=== PATIENT | female | born 1980 | race Caucasian/White ===

== ENCOUNTER 2020-10-15 09:48 | Emergency (ER) | payer OTHER ==
[~2020-10-15 09:48] MED LIST: IBUPROFEN600 MG PO; PERCOCET 5/325 T1 EA PO; ZOFRAN ODT 4 MG4 MG PO
[2020-10-15 11:06] LABS: HEMOGLOBIN 15.1 gm/dl (12.3-15.3); RED BLOOD COUNT 5.27 M/UL (4.00-5.10); WHITE BLOOD COUNT 9.6 K/UL (4.5-11.0)
[2020-10-15 11:26] LABS: BUN/CREATININE RATIO 17 (0-10)
[2020-10-15] MEDS ORDERED: NAPROXEN500 MG PO (12:24)
[2020-10-15] MEDS ORDERED: OMNICEF 300 MG300 MG PO (12:24)
[2020-10-15] MEDS ORDERED: MEDROL DOSEPAK 24 MG PO (12:24)
== END 2020-10-15 12:30 | disposition home or self-care (01) ==
LOC: ER1 09:48
PROVIDERS: Physician Assistant Medical
DX: N39.0 Urinary tract infection, site not specified (principal); E78.00 Pure hypercholesterolemia, unspecified; Z90.49 Acquired absence of other specified parts of digestive tract; Z87.891 Personal history of nicotine dependence; Z79.899 Other long term (current) drug therapy
CPT/HCPCS: 72131; 80053; 81001; 85025; 96372; 99284; J1885

== ENCOUNTER 2021-02-08 22:16 | Emergency (ER) | payer OTHER ==
[~2021-02-08 22:16] MED LIST changes: +MEDROL DOSEPAK 24 MG PO; +NAPROXEN500 MG PO; +OMNICEF 300 MG300 MG PO
[2021-02-08 23:48] LABS: HEMOGLOBIN 14.6 gm/dl (12.3-15.3); RED BLOOD COUNT 4.88 M/UL (4.00-5.10); WHITE BLOOD COUNT 13.3 K/UL (4.5-11.0)
[2021-02-09 00:19] LABS: BUN/CREATININE RATIO 16 (0-10)
[2021-02-09] MEDS ORDERED: NARCAN4 MG INH (01:19)
== END 2021-02-09 01:30 | disposition home or self-care (01) ==
LOC: ER1 22:16
PROVIDERS: Family Medicine
DX: T40.1X1A Poisoning by heroin, accidental (unintentional), initial encounter (principal); X58.XXXA Exposure to other specified factors, initial encounter; F17.210 Nicotine dependence, cigarettes, uncomplicated
CPT/HCPCS: 71045; 80053; 80307; 85025; 99285; G0480

== ENCOUNTER 2021-05-03 13:24 | Emergency (ER) | payer OTHER ==
[~2021-05-03 13:24] MED LIST changes: +NARCAN4 MG INH
[2021-05-03 14:12] LABS: RED BLOOD COUNT 4.7 M/UL (4.00-5.10)
[2021-05-03 14:36] LABS: BUN/CREATININE RATIO 16 (0-10)
[2021-05-06 05:07] LABS: CHLAMYDIA TRACHOMATIS, NAA Negative (Negative); NEISSERIA GONORRHOEAE, NAA Negative (Negative)
== END 2021-05-03 18:00 | disposition home or self-care (01) ==
LOC: ER1 13:24
PROVIDERS: Physician Assistant
DX: N93.8 Other specified abnormal uterine and vaginal bleeding (principal)
CPT/HCPCS: 76830; 80053; 81001; 83690; 84703; 85025; 87210; 96374; 99284; J1885; Q9967

== ENCOUNTER → 2021-08-13 | Outpatient (CLI) | payer OTHER ==
[2021-08-13 19:08] LABS: HEMOGLOBIN 14.5 gm/dl (12.3-15.3); RED BLOOD COUNT 4.92 M/UL (4.00-5.10); WHITE BLOOD COUNT 10.1 K/UL (4.5-11.0)
[2021-08-13 19:53] LABS: BUN/CREATININE RATIO 16 (0-10)
[2021-08-15 08:14] LABS: HIV AB/P24 AG SCREEN Non Reactive (Non Reactive)
== END ==
LOC: LAB 18:11
PROVIDERS: Internal Medicine Gastroenterology
DX: B18.2 Chronic viral hepatitis C (principal); F23 Brief psychotic disorder; R63.0 Anorexia
CPT/HCPCS: 80053; 80074; 81596; 82172; 82247; 82977; 83010; 84460; 85025; 86803; 87389; 87522; 87902

== ENCOUNTER 2021-09-24 10:19 | Emergency (ER) | payer OTHER ==
[2021-09-24] MEDS ORDERED: PROBIOTIC & AC1 EACH PO (12:10)
[2021-09-24] MEDS ORDERED: ZOFRAN 4 MG TAB4 MG PO (12:10)
[2021-09-24] MEDS ORDERED: IBUPROFEN600 MG PO (13:45)
== END 2021-09-24 13:59 | disposition home or self-care (01) ==
LOC: ER1 10:19
DX: L03.317 Cellulitis of buttock (principal); R11.0 Nausea; Z20.822 Contact with and (suspected) exposure to COVID-19
CPT/HCPCS: 96372; 99282; J1885; U0002